=== PATIENT | female | born 1955 | race American Indian/Alaskan Native ===

== ENCOUNTER 2018-07-23 14:17 | Outpatient (CLI) | payer BC ==
--- NOTE | 2018-07-24 08:33 | Mammography Report ---
BILATERAL DIGITAL SCREENING MAMMOGRAM with CAD : 07/23/18 14:17:00 CLINICAL: Routine screening. COMPARISON:09/04/16 FINDINGS: The breasts are heterogeneously dense, which may obscure small masses.Stable bilateral low density circumscribed masses. No new mass, architectural distortion or suspicious calcifications. IMPRESSION: No mammographic evidence of malignancy. BI-RADS CATEGORY: 2 -- Benign RECOMMENDATION: Routine mammographic screening in one year. COMMENT: Patient follow-up letters are generated by our [employer] application.
== END 2018-07-23 14:18 | disposition home or self-care (01) ==
LOC: MAMMO 14:17
PROVIDERS: ATTEND Internal Medicine
DX: Z12.31 Encounter for screening mammogram for malignant neoplasm of breast (principal)
CPT/HCPCS: 77067

== ENCOUNTER 2021-05-17 16:12 | Outpatient (CLI) | payer OTHER ==
--- NOTE | 2021-05-18 16:21 | Mammography Report ---
DIGITAL SCREENING MAMMOGRAM WITH CAD, 05/18/2021 CLINICAL INFORMATION / INDICATION: Routine screening mammography. SCREENING MAMMO TECHNIQUE: Digital bilateral 2D mammography was obtained in the craniocaudal and mediolateral obliqu e projections. This examination was interpreted with the benefit of Computer-Aided Detection analysis . COMPARISON: 07/23/2018 FINDINGS: Breast Density: There are scattered areas of fibroglandular density. No dominant mass, suspicious calcifications, or architectural distortion in either breast. Largely unchanged nodular densities in the breasts, commonly fibroglandular or fibrocystic change. IMPRESSION: No mammographic evidence of malignancy. Follow up recommendation: Routine yearly BI-RADS Category 2: Benign. A "normal" or negative report should not discourage follow up or biopsy of a clinically significant f inding. A written summary of these findings will be mailed to the patient. The patient will be entered into a mammography reporting system which will generate a reminder letter for the patient's next appointmen t at the appropriate interval. The [employer] recommends yearly mammograms starting at age 40 and continuing as l blanca as a woman is in good health. Breast MRI is recommended for women with an approximate 20-25% or greater lifetime risk of breast cancer, including women with a strong family history of breast or ova ahmet cancer or who have been treated for Hodgkin's disease. Signer Name: Carlos Johnson MD Signed: 05/18/2021 4:16 PM Workstation Name: [id number]
== END 2021-05-17 16:13 | disposition home or self-care (01) ==
LOC: SPVWC 16:12
PROVIDERS: ATTEND Internal Medicine
DX: Z12.31 Encounter for screening mammogram for malignant neoplasm of breast (principal)
CPT/HCPCS: 77067